=== PATIENT | female | born 1990 | race Caucasian/White ===

== ENCOUNTER 2020-09-08 11:32 | Outpatient (CLI) | payer OTHER, SELFPAY ==
--- NOTE | ~2020-09-08 | US_ITS ---
EXAMINATION: US OB <=14 wk fetus w TV EXAM DATE: 09/08/2020 12:32 INDICATION: Threatened . . 1st trimester. TECHNIQUE: Pelvic obstetrical transabdominal and transvaginal sonogram was performed by a technologi . There are multiple grayscale and Doppler images available for interpretation. There are no norman ier studies of this gestation for comparison. FINDINGS: Uterus measures 8.4 x 5.5 x 5.4 cm, without intrauterine identified. Endometrial stripe makayla sures 12 mm, within normal limits. There is trace free pelvic fluid. Right adnexa: The ovary measures 2.7 x 2.4 x 1.8 cm, has anechoic 1.6 cm simple cyst, could be the co rpus luteal cyst (no yolk sac or pole). Ovarian vascular flow confirmed. Left adnexa: The left ovary is normal in size and morphology. Early intrauterine or recent spontaneous are common causes of elevated beta hCG in absence of intrauterine confirmation. Ultrasound can sometimes identify, but never exclud e an ectopic in the setting of positive beta hCG. Follow up as warranted clinically with s erial beta hCG levels or ultrasound. IMPRESSION: No intrauterine or extrauterine identified. Reviewed, dictated and finalized at location [facility]. P OR [facility] [employer]
== END 2020-09-08 11:33 | disposition home or self-care (01) ==
LOC: ANHIMG 11:43
PROVIDERS: PCP Family Medicine; Visit Provider Obstetrics & Gynecology
DX: O20.0 Threatened abortion (principal)
CPT/HCPCS: 76801; 76817

== ENCOUNTER 2021-03-03 14:57 | Outpatient (CLI) | payer OTHER, SELFPAY ==
--- NOTE | ~2021-03-03 | US_ITS ---
US OB follow up DATE: 03/03/2021 15:40 INDICATION: Estimated gestational age determination TECHNIQUE: Digital imaging and Doppler analysis COMPARISON: None FINDINGS: Live ward intrauterine gestation, fetus in transverse lie. Posterior inferior placenta extending over the internal os. heart rate of 155 bpm. Subjectively normal amount of amniotic fluid. Biparietal diameter 3.16 cm; 15 weeks 6 days Head circumference 11.65 cm; 15 weeks 5 days Abdominal circumference 10.83 cm; 16 weeks 5 days Femur length 1.88 cm; 15 weeks 4 days Composite age by Hadlock formula 16 weeks +/- 1 week 1 day; ANTONIA: 08/18/2021 Estimated weight is 145.5 +/- 21.8 g. Head circumference/abdominal circumference 1.08, within normal range of 1.06-1.34 Femur length/head circumference 16.13, within normal range of 13.30-16.50 IMPRESSION: Low-lying placenta extending over internal os; continued follow-up is recommended Estimated gestational age is 16 weeks +/- 1 week 1 day; ANTONIA: 08/18/2021 Reviewed, dictated and finalized at [facility]. Reviewed, dictated and finalized at location [facility].
== END 2021-03-03 14:58 | disposition home or self-care (01) ==
PROVIDERS: PCP Family Medicine; Visit Provider Physician Assistant
DX: Z36.89 Encounter for other specified antenatal screening (principal); Z3A.16 16 weeks gestation of pregnancy; O44.42 Low lying placenta NOS or without hemorrhage, second trimester
CPT/HCPCS: 76816

== ENCOUNTER 2021-04-24 16:37 | Outpatient (CLI) | payer OTHER, SELFPAY ==
--- NOTE | ~2021-04-24 | US_ITS ---
US OB /maternal detail DATE: 04/24/2021 17:40 INDICATION: anatomy screen. Normal . TECHNIQUE: Real-time imaging and Doppler analysis COMPARISON: 03/03/2021 obstetrical ultrasound FINDINGS: Live ward intrauterine gestation, fetus in longitudinal lie, vertex presentation. Anterior placenta, lower margin 5.4 cm above the internal os. Amniotic fluid index measures 12.8 cm, within normal limits. (5th percentile MONSE is 9.8 cm; 95th perc entile is 21.9 cm.) Normal size of cerebral ventricles. Normal cerebellum. nose and lip area is normal. Ciste rna magna is normal. spine is unremarkable on transverse and longitudinal views. Four-chamber f etal heart. The diaphragm is intact. Fluid is demonstrated in the stomach and urinary layton dder. The kidneys are unremarkable without hydronephrosis. extremities are unremarkable. Female external genitalia. What the pocket is: Three-vessel umbilical cord with normal insertion at abdominal wall. Biparietal diameter 5.51 cm; 22 weeks 6 days Head circumference 21.20 cm; 23 weeks 2 days Abdominal circumference 19.26 cm; 24 weeks Femur length 4.27 cm; 24 weeks Composite age by Hadlock formula is 23 weeks 4 days +/- 1 week 5 day with ANTONIA of 08/17/2021, similar to ANTONIA of 08/18/2021 on 03/03/2021 obstetrical ultrasound examination. Estimated weight: 634.9 +/- 95.2 g Estimated weight-GP: 55.2% IMPRESSION: Normal anatomy screen MONSE measures 12.8 cm, normal Estimated gestational age of 23 weeks 4 days +/- 1 week 5 days with ANTONIA: 08/17/2021 Reviewed, dictated and finalized at [facility]. Reviewed, dictated and finalized at location [facility]. IMPRESSION: Normal anatomy screen MONSE measures 12.8 cm, normal Estimated gestational age of 23 weeks 4 days +/- 1 week 5 days with ANTONIA: 08/17/19 22
== END 2021-04-24 16:38 | disposition home or self-care (01) ==
LOC: ANHIMG 16:41
PROVIDERS: PCP Family Medicine; Visit Provider Physician Assistant
DX: Z36.89 Encounter for other specified antenatal screening (principal); Z3A.23 23 weeks gestation of pregnancy
CPT/HCPCS: 76805